=== PATIENT | male | born 1990 | race Two or more races ===

== ENCOUNTER 2019-03-08 16:01 | Emergency (ER) | payer BC, OTHER ==
[~2019-03-08] VITALS: Ht 172.7 cm; Wt 93.4 kg
--- NOTE | 2019-03-08 17:11 | NUR ---
Pt to 30 from lobby
--- NOTE | 2019-03-08 17:18 | NUR ---
IN TO ASSESS PT. PT NOT IN ROOM AT THIS TIME.
--- NOTE | 2019-03-08 17:26 | NUR ---
PT STATES LEFT GROIN PAIN RADIATING TO BILAT HIPS AND DOWN LEFT LEFT X4 DAYS. DENIES TRAUMA. CONNECTED TO MONITORING. AWAITING ORDERS AT THIS TIME.
--- NOTE | 2019-03-08 18:11 | NUR ---
PT TAKEN TO CT
--- NOTE | 2019-03-08 18:21 | NUR ---
PT BACK FROM CT
[2019-03-08 18:38] VITALS: BP 127/84
--- NOTE | 2019-03-08 18:39 | NUR ---
TASK RN: PT RESTING ON KETTY. SHERRY. PT DENIES BLANKETS AT THIS TIME. NO OTHER NEEDS REQUESTED AT THIS TIME.
--- NOTE | 2019-03-08 19:12 | NUR ---
MD AT BEDSIDE TO UPDATE PT ON POC.
== END 2019-03-08 19:35 | disposition home or self-care (01) ==
LOC: ED 19:05
DX: M54.16 Radiculopathy, lumbar region (principal)
CPT/HCPCS: 72131; 99284